=== PATIENT | male | born 1945 | race Caucasian/White ===

== ENCOUNTER 2021-02-06 10:29 | Day surgery (SDCO) | payer MEDICARE, OTHER ==
[~2021-02-06] VITALS: Ht 180.3 cm; Wt 78.6 kg
[~2021-02-06 10:29] MED LIST: ADVIL200 M1 PO; ASPIRIN CHEWABL81 MG PO; CENTRUM ADULTS1 EACH PO; OSTEO BI-FLEX1 EAC1 PO; VITAMIN D400 UNIT PO; XARELTO10 MG PO
[2021-02-06 11:01] LABS: BILIRUBIN NEGATIVE (NEGATIVE); BLOOD 1+ Ery/uL (NEGATIVE); CLARITY CLEAR (CLEAR); COLOR YELLOW (YELLOW); GLUCOSE (U) NORMAL (NORMAL); LEUKOCYTES NEGATIVE Leu/uL (NEGATIVE); NITRITE NEGATIVE (NEGATIVE); PROTEIN 2+ mg/dL (NEGATIVE); SPECIFIC GRAVITY >=1.030 (1.001-1.030)
[2021-02-06 11:03] LABS: BASOPHIL 0.2 % (0-2); EOSINOPHIL 0 % (0-7); HCT 49.7 % (42.0-52.0); MCH 30.2 pg (25.0-31.0); MCHC 34.2 g/dL (32.0-36.0); MCV 88.3 fL (78.0-100.0); MONOCYTE 7.1 % (0-12); MPV 9.7 fL (6.0-9.5); NRBC 0; PLT 239 K/uL (150-400); RBC 5.63 M/uL (4.70-6.00); RDW 12.9 % (11.5-14.0)
[2021-02-06 11:13] LABS: ALBUMIN 4.8 g/dL (3.4-5.0); BILIRUBIN - TOTAL 1.1 mg/dL (0.2-1.0); BUN/CREAT RATIO (CALC) 25.2 RATIO; CREATININE 1.11 mg/dL (0.67-1.17); GLOBULIN (CALCULATION) 4.2 g/dL; POTASSIUM 3.7 mmol/L (3.5-5.1)
[2021-02-06 11:14] LABS: BACTERIA 1+; MUCOUS MODERATE; URINARY WBC RARE
[2021-02-07 08:41] LABS: BASOPHIL 0.3 % (0-2); EOSINOPHIL 1.5 % (0-7); HCT 40.7 % (42.0-52.0); HGB 13.7 g/dl (13.2-18.0); LYMPHOCYTE 14.8 % (15-48); MCH 30.2 pg (25.0-31.0); MCHC 33.7 g/dL (32.0-36.0); MCV 89.8 fL (78.0-100.0); MONOCYTE 11.5 % (0-12); MPV 9.5 fL (6.0-9.5); NEUTROPHIL 71.5 % (41-80); NRBC 0; PLT 148 K/uL (150-400); RBC 4.53 M/uL (4.70-6.00); RDW 13.2 % (11.5-14.0); WBC 7.8 K/uL (4.0-10.5)
[2021-02-07 08:57] LABS: ALBUMIN 3.3 g/dL (3.4-5.0); BUN/CREAT RATIO (CALC) 23.6 RATIO; CREATININE 0.89 mg/dL (0.67-1.17); MAGNESIUM 1.9 mg/dL (1.8-2.4); POTASSIUM 3.6 mmol/L (3.5-5.1)
[2021-02-07 09:01] LABS: TOTAL PROTEIN 6.3 g/dL (6.4-8.2)
== END 2021-02-07 14:55 | disposition home or self-care (01) ==
LOC: FER 10:29 → FMS 14:02
PROVIDERS: Emergency Medicine; ADMIT Internal Medicine
DX: K40.31 Unilateral inguinal hernia, with obstruction, without gangrene, recurrent (principal); K56.609 Unspecified intestinal obstruction, unspecified as to partial versus complete obstruction; M17.11 Unilateral primary osteoarthritis, right knee; Z98.890 Other specified postprocedural states; Z20.822 Contact with and (suspected) exposure to COVID-19; J98.11 Atelectasis
CPT/HCPCS: 36415; 74022; 80053; 81001; 83605; 83735; 85025; 87040; G0378; J1170; J2405; J2543; J7030; Q9967; U0002